=== PATIENT | female | born 1965 ===

== ENCOUNTER 2018-11-13 12:52 | Emergency (ER) | payer OTHER ==
[2018-11-13 13:02] VITALS: RESP 18; TEMP 98.4
--- NOTE | 2018-11-13 13:58 | ED PDOC ---
Arrival/HPI - General Chief Complaint: Abnormal Skin Integrity Historian: Patient - History of Present Illness Narrative History of Present Illness (Text): 11/13/18 13:49 53 y/o female, pmh including open heart surgery, nkda, post menopausal, last tetanus under 2 years ago, c/o lt. hand laceration x 2 hours from the knife. Pt. stated that she was cut by knife while trying to open the can form the freezer, sustained the lt. hand laceration, bleeding resolved, no numbness or tingling, no headache or night sweat, no abnormal bleeding or bruising, no rash, no other medical or psychological complaints. Past Medical History - Provider Review Nursing Documentation Reviewed: Yes - Reproductive Menopause: Yes - Cardiac Hx Hypertension: Yes - Psychiatric Hx Substance Use: No - Surgical History Hx Section: Yes Hx Cholecystectomy: Yes Other/Comment: Valve replacement Family/Social History - Physician Review Nursing Documentation Reviewed: Yes Family/Social History: Unknown Family HX Smoking Status: Never Smoked Hx Alcohol Use: No Hx Substance Use: No Allergies/Home Meds Allergies/Adverse Reactions: Allergies shrimp Allergy (Verified 11/13/18 13:02) ANGIOEDEMA Home Medications: Home Meds Medication Instructions Recorded Confirmed Aspirin [Aspirin Chewable] 81 mg PO DAILY 11/13/18 11/13/18 Bisoprolol [Zebeta] 2.5 mg PO DAILY 11/13/18 11/13/18 Warfarin Sodium 9 mg PO DAILY 11/13/18 11/13/18 Review of Systems - Review of Systems Constitutional: absent: Fatigue, Fevers Eyes: absent: Vision Changes ENT: absent: Hearing Changes Respiratory: absent: SOB, Cough Cardiovascular: absent: Chest Pain Gastrointestinal: absent: Abdominal Pain, Diarrhea, Nausea, Vomiting Musculoskeletal: absent: Arthralgias, Back Pain Skin: Laceration. absent: Rash, Pruritis, Skin Lesions, Abscess, Ulcer, Cellulitis Neurological: absent: Headache, Dizziness Psychiatric: absent: Anxiety, Depression, Suicidal Ideation Physical Exam Vital Signs Reviewed: Yes Vital Signs Temp Pulse Resp BP Pulse Ox 11/13/18 12:57 98.4 F 77 18 154/103 H 99 Temperature: Afebrile Blood Pressure: Hypertensive Pulse: Regular Respiratory Rate: Normal Appearance: Positive for: Well-Appearing, Non-Toxic, Comfortable Pain Distress: Mild Mental Status: Positive for: Alert and Oriented X 3 - Systems Exam Head: Present: Atraumatic, Normocephalic Pupils: Present: PERRL Extroacular Muscles: Present: EOMI Conjunctiva: Present: Normal Mouth: Present: Moist Mucous Membranes Neck: Present: Normal Range of Motion Respiratory/Chest: Present: Clear to Auscultation, Good Air Exchange. No: Respiratory Distress, Accessory Muscle Use Cardiovascular: Present: Regular Rate and Rhythm, Normal S1, S2. No: Murmurs Abdomen: No: Tenderness, Distention, Peritoneal Signs Back: Present: Normal Inspection Upper Extremity: Present: Normal Inspection, NORMAL PULSES, Neurovascularly Intact, Capillary Refill < 2s, Other (Lt. hand: visible 2cm superficial laceration noted on the dorsum 2nd MCPJ region, no bony tenderness, no deformity, FROM without limitation, sensation intact, motor 5/5, +radial pulse, capillary refill< 2 seconds, neurovascular intact. ). No: Cyanosis, Edema, Deformity Lower Extremity: Present: Normal Inspection, Neurovascularly Intact. No: Edema Neurological: Present: GCS=15, CN II-XII Intact, Speech Normal, Motor Func Grossly Intact, Gait Normal, Memory Normal Skin: Present: Warm, Dry, Normal Color. No: Rashes Psychiatric: Present: Alert, Oriented x 3, Normal Insight, Normal Concentration Medical Decision Making ED Course and Treatment: 11/13/18 14:06 -INR -Will suture 11/13/18 14:14 PROCEDURE: LACERATION REPAIR Performed by the emergency provider Location: Lt. hand dorsum 2nd MCPJ Length: 1.5 cm Description: {"clean wound edges","no foreign bodies"} Distal CMS: Normal. No deficits. Neurovascularly intact. Anesthesia: Lidocaine 1% 0.5cc Preparation: The wound was cleaned with NS 1000cc and clean with Betadine. The area was prepped and draped in the usual sterile fashion. Exploration: The wound was explored and no foreign bodies were found. Procedure: The wound was closed with 5-0 Prolene. There was {good / appropriate / adequate / loose} approximation. In total, 3 were used. Post-Procedure: Good closure and hemostasis. The patient tolerated the procedure well and there were no complications. CSM remains intact. Post procedure dressing applied. 11/13/18 14:51 -INR 1.75, subtherapeutic for her -Discharge home with keflex, bacitracin oinment, tylenol for pain, sutures removed on day 12, INR level is 1.75 so please go see your own pmd to have it adjusted warfarin dose, follow up with your own pmd within 2 days, return to the ER for any new or worsening signs or symptoms. -Pt. has full range of movement and full sensation intact on the left hand. - PA / ENAMEL PULVERIZER / Resident Statement MD/DO has reviewed & agrees with the documentation as recorded. Disposition/Present on Arrival - Present on Arrival Any Indicators Present on Arrival: No History of DVT/PE: No History of Uncontrolled Diabetes: No Urinary Catheter: No History of Decub. Ulcer: No History Surgical Site Infection Following: None - Disposition Have Diagnosis and Disposition been Completed?: Yes Diagnosis: Hand laceration, Subtherapeutic international normalized ratio (INR) Disposition: HOME/ ROUTINE Disposition Time: 14:55 Patient Plan: Discharge Condition: GOOD Additional Instructions: -Discharge home with keflex, bacitracin oinment, tylenol for pain, sutures removed on day 12, INR level is 1.75 so please go see your own pmd to have it adjusted warfarin dose, follow up with your own pmd within 2 days, return to the ER for any new or worsening signs or symptoms. Prescriptions: Acetaminophen [Tylenol] 2 cap PO QID PRN #30 capsule PRN Reason: Other Bacitracin Ointment [Bacitracin] 1 apful TOP BID #15 g Cephalexin [Keflex] 500 mg PO TID #21 capsule Referrals: Ronit Rosario MD [Staff Provider] - Follow up with primary [facility] [place] [Outside] - Follow up with primary Forms: v[employer]ter (Arabic), WORK NOTE
[2018-11-13 14:28] LABS: INR 1.75; PROTHROMBIN TIME 19.8 SECONDS (9.4-12.5)
[2018-11-13 15:01] VITALS: BP 131/97; PULSE 73; O2SAT 98
== END 2018-11-13 15:02 | disposition home or self-care (01) ==
LOC: ED 12:52
DX: S61.412A Laceration without foreign body of left hand, initial encounter (principal); W26.0XXA Contact with knife, initial encounter; Y93.G9 Activity, other involving cooking and grilling; R79.1 Abnormal coagulation profile